=== PATIENT | female | born 1950 | race Caucasian/White ===

== ENCOUNTER 2021-01-28 23:31 | Emergency (ER) | payer OTHER ==
[~2021-01-28 23:31] MED LIST: FLAGYL500 MG PO; HYDROCHLOROTHIA25 MG PO; LEVAQUIN500 MG PO; LISINOPRIL10 MG PO; LOPRESSOR 25 MG25 MG PO; NEURONTIN 300300 MG PO; NORCO 7.5-3251 EACH PO; PANTOPRAZOLE SO40 MG PO; PLAVIX 75 MG TA75 MG PO; SYNTHROID100 MCG PO; TRICOR145 MG PO; ZOCOR80 MG PO
[2021-01-29 01:29] LABS: HEMOGLOBIN 12.3 gm/dl (12.3-15.3); RED BLOOD COUNT 3.82 M/UL (4.00-5.10); WHITE BLOOD COUNT 6.9 K/UL (4.5-11.0)
[2021-01-29 01:45] LABS: BUN/CREATININE RATIO 14 (0-10)
[2021-01-29] MEDS ORDERED: LACTULOSE10 GM/15 M PO (05:50)
== END 2021-01-29 06:20 | disposition home or self-care (01) ==
LOC: ER1 23:31
PROVIDERS: Family Medicine
DX: F11.90 Opioid use, unspecified, uncomplicated (principal); K72.90 Hepatic failure, unspecified without coma; K74.60 Unspecified cirrhosis of liver; K59.00 Constipation, unspecified; G89.29 Other chronic pain; F17.200 Nicotine dependence, unspecified, uncomplicated
CPT/HCPCS: 51701; 70450; 71045; 80053; 81001; 82140; 82550; 82553; 83605; 83690; 83735; 83874; 84484; 85025; 93005; 99284

== ENCOUNTER 2021-02-05 23:10 | Inpatient (IN) | payer OTHER ==
[~2021-02-05] VITALS: Ht 144.8 cm; Wt 68.0 kg
[~2021-02-05 23:10] MED LIST changes: +LACTULOSE10 GM/15 M PO
[2021-02-06 00:13] LABS: HEMOGLOBIN 12.1 gm/dl (12.3-15.3); RED BLOOD COUNT 3.69 M/UL (4.00-5.10); WHITE BLOOD COUNT 6.7 K/UL (4.5-11.0)
[2021-02-06 00:37] LABS: BUN/CREATININE RATIO 14 (0-10)
[2021-02-06] MEDS ORDERED: POTASSIUM CHLO20 ME2 PO (03:12)
[2021-02-06] MEDS ORDERED: FOLIC ACID0.4 MG PO (03:18)
[2021-02-06] MEDS ORDERED: LEVOTHYROXINE125 MC1 PO (03:18)
[2021-02-06] MEDS ORDERED: ASPIRIN325 MG PO (03:18)
[2021-02-06] MEDS ORDERED: LOPRESSOR 25 MG25 MG PO (03:19)
[2021-02-06] MEDS ORDERED: POTASSIUM CHLO20 ME1 PO (03:20)
[2021-02-06] MEDS ORDERED: SIMETHICONE125 M1 PO (03:21)
[2021-02-06] MEDS ORDERED: SPIRONOLACTONE50 MG PO (03:22)
[2021-02-06] MEDS ORDERED: ENULOSE10 GM/15 M PO (03:23)
[2021-02-06] MEDS ORDERED: FUROSEMIDE20 MG PO (03:23)
[2021-02-06] MEDS ORDERED: VITAMIN B12-FO1 EACH PO (03:24)
[2021-02-06] MEDS ORDERED: OXYCODONE HCL5 MG PO (03:25)
--- NOTE | 2021-02-06 13:47 | NUR ---
CRITICAL LABS TRENDING DOWN
[2021-02-07 07:06] LABS: HEMOGLOBIN 10.9 gm/dl (12.3-15.3); RED BLOOD COUNT 3.36 M/UL (4.00-5.10); WHITE BLOOD COUNT 5.5 K/UL (4.5-11.0)
[2021-02-08 06:47] LABS: HEMOGLOBIN 10.7 gm/dl (12.3-15.3); RED BLOOD COUNT 3.31 M/UL (4.00-5.10)
--- NOTE | 2021-02-08 08:46 | NUR ---
Notified Dr. Lau of abdominal ultra sound results- portale vein thrombosis. Dr. Lau stated that he would address when he saw the patient. No new orders recieved.
[2021-02-09 08:03] LABS: HEMOGLOBIN 11.8 gm/dl (12.3-15.3); WHITE BLOOD COUNT 6.9 K/UL (4.5-11.0)
[2021-02-09 08:07] LABS: RED BLOOD COUNT 3.74 M/UL (4.00-5.10)
[2021-02-09] MEDS ORDERED: ASPIRIN CHEWABL81 MG PO (15:29)
[2021-02-09] MEDS ORDERED: XIFAXAN 550 MG550 MG PO (15:29)
--- NOTE | 2021-02-09 18:17 | NUR ---
pt refused flu shot noted
== END 2021-02-09 18:45 | disposition home or self-care (01) | DRG 442 ==
LOC: ER1 23:10 → MED SURG 4 02-06 01:36 → CDU 02-06 01:36 → MED SURG 4 02-06 10:38
PROVIDERS: Emergency Medicine; Internal Medicine; ADMIT Internal Medicine
DX: K72.00 Acute and subacute hepatic failure without coma (principal); N17.9 Acute kidney failure, unspecified; Z20.822 Contact with and (suspected) exposure to COVID-19; E44.0 Moderate protein-calorie malnutrition; K76.6 Portal hypertension; F11.90 Opioid use, unspecified, uncomplicated; E83.41 Hypermagnesemia; G89.29 Other chronic pain; I25.10 Atherosclerotic heart disease of native coronary artery without angina pectoris; I73.9 Peripheral vascular disease, unspecified; K74.60 Unspecified cirrhosis of liver; I11.9 Hypertensive heart disease without heart failure; I72.8 Aneurysm of other specified arteries; Z96.643 Presence of artificial hip joint, bilateral; E86.0 Dehydration; F17.210 Nicotine dependence, cigarettes, uncomplicated; E78.5 Hyperlipidemia, unspecified; E03.9 Hypothyroidism, unspecified; Z91.14 Patient's other noncompliance with medication regimen; Z95.5 Presence of coronary angioplasty implant and graft; Z86.73 Personal history of transient ischemic attack (TIA), and cerebral infarction without residual deficits; Z90.49 Acquired absence of other specified parts of digestive tract; Z79.82 Long term (current) use of aspirin; Z79.899 Other long term (current) drug therapy; Z68.32 Body mass index [BMI] 32.0-32.9, adult
CPT/HCPCS: 36415; 36600; 51701; 70450; 71045; 74160; 76700; 80048; 80053; 80061; 80307; 81001; 82140; 82550; 82553; 82607; 82728; 82746; 82803; 83036; 83540; 83550; 83690; 83735; 83874; 83880; 84100; 84439; 84443; 84484; 84550; 85025; 85027; 85610; 85730; 86140; 87040; 87086; 93005; 99285; G0480; J0696; J1650; J7030; Q9967; U0002